=== PATIENT | female | born 1950 | race Caucasian/White ===

== ENCOUNTER 2017-04-16 14:36 | Outpatient (CLI) | payer MEDICARE | END 2017-04-16 14:37 | disposition home or self-care (01) | LOC: BICMAMMO 14:36 | PROVIDERS: ATTEND Family Medicine | DX: Z12.31 Encounter for screening mammogram for malignant neoplasm of breast (principal) | CPT/HCPCS: 77063; 77067 ==

== ENCOUNTER 2018-04-24 13:42 | Outpatient (CLI) | payer MEDICARE | END 2018-04-24 13:43 | disposition home or self-care (01) | LOC: BICMAMMO 13:42 | PROVIDERS: ATTEND Family Medicine | DX: Z12.31 Encounter for screening mammogram for malignant neoplasm of breast (principal); R92.1 Mammographic calcification found on diagnostic imaging of breast | CPT/HCPCS: 77063; 77067 ==

== ENCOUNTER 2019-05-26 13:43 | Outpatient (CLI) | payer MEDICARE ==
--- NOTE | 2019-05-26 15:17 | MMO ---
Bilateral MAMMO Bilat Screen [facility]. CLINICAL HISTORY: Patient is 69 years old and is seen for screening. The patient has no family history of breast cancer. The patient has no personal history of cancer. VIEWS: The views performed were: bilateral craniocaudal with tomosynthesis and bilateral mediolateral oblique with tomosynthesis. FILMS COMPARED: The present examination has been compared to prior imaging studies performed at [facility] on 04/08/2015, 04/13/2016, 04/16/2017 and 04/24/2018. This study has been interpreted with the assistance of computer-aided detection. MAMMOGRAM FINDINGS: There are scattered fibroglandular densities. Finding 1: There are stable benign appearing calcifications seen in both breasts. Finding 2: There are stable intramammary lymph nodes seen in both breasts. There are no suspicious masses, suspicious calcifications, or new areas of architectural distortion. IMPRESSION: THERE IS NO MAMMOGRAPHIC EVIDENCE OF MALIGNANCY. A ROUTINE FOLLOW-UP MAMMOGRAM IN 1 YEAR IS RECOMMENDED. THE RESULTS OF THIS EXAM WERE SENT TO THE PATIENT. ACR BI-RADS Category 2 - Benign finding MAMMOGRAPHY NOTE: 1. A negative mammogram report should not delay a biopsy if a dominant of clinically suspicious mass is present. 2. Approximately 10% to 15% of breast cancers are not detected by mammography. 3. Adenosis and dense breasts may obscure an underlying neoplasm. Reported by: BIANCA NELSON MD Electonically Signed: [id number]
== END 2019-05-26 13:44 | disposition home or self-care (01) ==
LOC: BICMAMMO 13:43
PROVIDERS: ATTEND Family Medicine
DX: Z12.31 Encounter for screening mammogram for malignant neoplasm of breast (principal)
CPT/HCPCS: 77063; 77067

== ENCOUNTER 2020-02-05 12:52 | Outpatient (CLI) | payer MEDICARE ==
--- NOTE | 2020-02-05 13:47 | MRI ---
EXAM: Left shoulder MRI without contrast: HISTORY: Left shoulder pain COMPARISON: None FINDINGS: Multiplanar, multisequence MRI examination of the shoulder is performed. A C joint:Arthrosis with minimal fluid and fat stranding in the subacromial and subdeltoid bursa. Supraspinatus tendon: Attenuated full-thickness supraspinatus tendon tear with some partial undersurf danielle retraction. Infraspinatus tendon: Full-thickness tear of the conjoined tendon and anterior infraspinatus tendon w ith retraction back to the level of the humeral dome with minimal delamination. Biceps tendon: No normal intact biceps tendon is seen. Subscapularis tendon: Extensive abnormal signal associated with the subscapularis tendon evidence for undersurface and interstitial tearing. Rotator cuff muscles: Moderate decreased muscle volume loss of the supraspinatus muscle and infraspin atus muscle with some fatty change. Glenoid labrum: Abnormal signal associated with the superior labrum evidence for SLAP tear with assoc iated fraying. No evidence for acute osteochondral defect or significant abnormal marrow edema signal. IMPRESSION: Multiple rotator cuff tears as above. 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 Muscle volume loss of the supraspinatus and infraspinatus muscles Poorly defined superior labrum evidence for tearing and fraying.
--- NOTE | 2020-02-05 14:47 | MRI ---
MRI lumbar spine noncontrast: HISTORY: Low back pain, numbness and tingling in the fingers. COMPARISON: None. FINDINGS: There is fluid signal intensity in the L4-L5 and L5-S1 disc space. Endplates appear to be preserved. There does appear to be edema at the L5-S1 level which is presumed to be due to type I Modic change. Vertebral body edema from an infectious or inflammatory process cannot be entirely excluded. Correlate clinically for diskitis/osteomyelitis. There is appropriate T1 marrow signal intensity of the lumbar vertebra from L1 through L4. No fracture. Appropriate signal intensity in the visualized paraspinal muscles and solid organs. Conus medullaris terminates at the superior aspect of L1. Spondylolisthesis: L4-L5: 3.7 mm of anterolisthesis L5-S1: 5.9 mm of anterolisthesis T12-L1:Adequate disc hydration. No posterior disc abnormality. No significant central canal stenosis or significant neural foraminal narrowing. L1-L2:Adequate disc hydration. Broad-based disc bulge abuts the thecal sac. Mild central canal stenos is. Patent bilateral neural foramina. L2-L3:Adequate disc hydration. Broad-based disc bulge abuts the thecal sac. No significant central ca nal stenosis. Patent bilateral neural foramina. L3-L4:Disc desiccation without significant loss of disc space height. Broad-based disc bulge, ligamen carlos eduardo flavum thickening and facet hypertrophy result in mild central canal stenosis. Mild bilateral neural foraminal narrowing. L4-L5:Disc desiccation without significant loss of disc space height. Broad-based disc bulge, ligamen carlos eduardo flavum thickening and facet hypertrophy result in moderate central canal stenosis. There is fluid in both facet joints. There is a T2 hyperintensity posterior to the right facet joint suggestin g a synovial cyst involving the paraspinal soft tissues. Moderate to severe bilateral neural foraminal narrowing. There is a T2 hyperintensity in the left foraminal disc compatible with annular fissure. Annular fissure abuts the foraminal left L4 nerve root. L5-S1:Disc desiccation with moderate loss of disc space height. Broad-based disc bulge, ligamentum fl avum thickening and facet hypertrophy result in moderate central canal stenosis. There is fluid in both facet joints. There is a T2 hyperintensity posterior to the right facet, compatible with a brian binh synovial cyst. There is a posterior midline annular fissure. Severe bilateral neural foraminal narrowing. IMPRESSION: 1. Degenerative disc disease throughout the lumbar spine as detailed above. Nonspecific fluid intensi ty of the central portion of the L4-L5 and L5-S1 disc. Endplates are preserved. 2. Type I Modic changes at L5-S1. Given the presence of fluid signal intensity, developing diskitis/o steomyelitis cannot be entirely excluded. Clinical correlation is essential. Results of study conveyed to Dr. Sterling via [facility] on 02/05/2020 at 2:45 PM Code CR Transcribed Date/Time: 02/05/2020 3:23 PM
--- NOTE | 2020-02-05 15:44 | MRI ---
MR OF THE CERVICAL SPINE WITHOUT CONTRAST: 02/05/20 INDICATION: History of disc degeneration of the cervical spine with neck pain and tingling in the fingers. COMPARISON: Prior MR Of the cervical spine dated 08/18/07 from [facility]. FINDINGS: Motion artifact slightly limits image detail on the examination. The visualized aspects of the posterior fossa appear within normal limits. The prevertebral and parav ertebral soft tissues appear within normal limits. Bone marrow signal intensity appears within normal limits. No acute fracture is evident. Spinal alignment is within normal limits. At C2-C3, there is mild facet joint degenerative change which has worsened from the prior exam. There is no appreciable central canal or neural foraminal narrowing. At C3-C4, there is moderate to severe right and moderate left facet joint degenerative change. There is a broad based disc bulge inducing mild central canal narrowing without cord compression. There is severe right and moderate to severe left neural foraminal narrowing. This has worsened from the prior exam. At C4-C5, there is a broad based bulge with uncovertebral hypertrophy and facet joint degenerative ch joe inducing moderate left neural foraminal narrowing and mild central canal narrowing. At C5-C6, there is a broad based bulge with uncovertebral hypertrophy inducing moderate left neural f oraminal narrowing. At C6-C7, there is a broad based bugle with facet hypertrophy but no appreciable central canal or sandra ral foraminal narrowing. At C7-T1, there is no appreciable central canal or neural foraminal narrowing. IMPRESSION: Worsening central canal and neural foraminal narrowing as above. POS: LISA
== END 2020-02-05 12:53 | disposition home or self-care (01) ==
LOC: BICMRI 12:52
PROVIDERS: ATTEND Family Medicine
DX: M50.30 Other cervical disc degeneration, unspecified cervical region (principal); M25.512 Pain in left shoulder; M54.5 Low back pain; M51.36 Other intervertebral disc degeneration, lumbar region; M48.02 Spinal stenosis, cervical region; M75.102 Unspecified rotator cuff tear or rupture of left shoulder, not specified as traumatic; M19.012 Primary osteoarthritis, left shoulder; S43.432A Superior glenoid labrum lesion of left shoulder, initial encounter
CPT/HCPCS: 72141; 72148

== ENCOUNTER 2020-06-14 14:20 | Outpatient (CLI) | payer MEDICARE | END 2020-06-14 14:21 | disposition home or self-care (01) | LOC: BICMAMMO 14:20 | PROVIDERS: ATTEND Family Medicine | DX: Z12.31 Encounter for screening mammogram for malignant neoplasm of breast (principal) | CPT/HCPCS: 77063; 77067 ==

== ENCOUNTER 2021-06-16 13:02 | Outpatient (CLI) | payer MEDICARE | END 2021-06-16 13:03 | disposition home or self-care (01) | LOC: BICMAMMO 13:02 | PROVIDERS: ATTEND Family Medicine | DX: Z12.31 Encounter for screening mammogram for malignant neoplasm of breast (principal) | CPT/HCPCS: 77063; 77067 ==

== ENCOUNTER 2022-07-03 12:35 | Outpatient (CLI) | payer MEDICARE | END 2022-07-03 12:36 | disposition home or self-care (01) | LOC: BICMAMMO 12:35 | PROVIDERS: ATTEND Family Medicine | DX: Z12.31 Encounter for screening mammogram for malignant neoplasm of breast (principal) | CPT/HCPCS: 77063; 77067 ==

== ENCOUNTER 2024-02-24 09:39 | Outpatient (CLI) | payer MEDICARE | END 2024-02-24 09:40 | disposition home or self-care (01) | LOC: RAD 09:39 | PROVIDERS: ATTEND Internal Medicine Critical Care Medicine | DX: R06.00 Dyspnea, unspecified (principal) | CPT/HCPCS: 71046 ==

== ENCOUNTER 2024-04-30 12:31 | Outpatient (CLI) | payer MEDICARE | END 2024-04-30 12:32 | disposition home or self-care (01) | LOC: BICCT 12:31 | PROVIDERS: ATTEND Internal Medicine Nephrology | DX: N18.30 Chronic kidney disease, stage 3 unspecified (principal); M47.816 Spondylosis without myelopathy or radiculopathy, lumbar region; M47.817 Spondylosis without myelopathy or radiculopathy, lumbosacral region; I70.90 Unspecified atherosclerosis | CPT/HCPCS: 36415; 74176; 80048; 83970 ==